=== PATIENT | female | born 1995 | race African-American/Black ===

== ENCOUNTER 2017-01-29 21:55 | Emergency (ER) | payer OTHER ==
[~2017-01-29] VITALS: Ht 167.6 cm; Wt 74.0 kg
[~2017-01-29 21:55] MED LIST: NOHOMEMEDS
[2017-01-29] MEDS ORDERED: NIFEDIPINE ER60 MG PO (22:08)
[2017-01-29] MEDS ORDERED: FLEXERIL10 MG PO (22:50)
[2017-01-29] MEDS ORDERED: NAPROXEN500 MG PO (22:50)
[2017-01-29 23:14] VITALS: BP 129/87
== END 2017-01-29 23:28 | disposition home or self-care (01) ==
LOC: EME 21:55
DX: S39.012A Strain of muscle, fascia and tendon of lower back, initial encounter (principal); I10 Essential (primary) hypertension; Y92.411 Interstate highway as the place of occurrence of the external cause; V49.09XA Driver injured in collision with other motor vehicles in nontraffic accident, initial encounter; Z88.6 Allergy status to analgesic agent
CPT/HCPCS: 99281; 99284

== ENCOUNTER 2017-06-22 20:45 | Emergency (ER) | payer SELFPAY ==
[~2017-06-22] VITALS: Ht 167.6 cm; Wt 76.2 kg
[~2017-06-22 20:45] MED LIST changes: +FLEXERIL10 MG PO; +NAPROXEN500 MG PO; +NIFEDIPINE ER60 MG PO
[2017-06-22 21:41] LABS: EOSINOPHIL (%) 1.5 % (0-5); EOSINOPHIL COUNT 0.2 K/uL (0-0.3); HEMATOCRIT 39.1 % (36.0-46.0); IMMATURE GRANULOCYTE (%) 0.4 % (0.0-0.7); IMMATURE GRANULOCYTE COUNT 0.1 K/uL; LYMPHOCYTE COUNT 1.9 K/uL (1.0-2.8); MCH 26.6 PG (29.0-34.0); MCHC 32.2 G/DL (30.0-36.0); MCV 82.5 FL (83-99); MEAN PLAT.VOLUME 10.8 uM^3 (9.5-12.4); MONOCYTE (%) 6.8 % (3-12); MONOCYTE COUNT 0.8 K/uL (0-0.8); PLATELET COUNT 226 K/uL (156-360); RBC DIS.WIDTH-CV 14.1 % (11.8-14.6); RBC DIS.WIDTH-SD 42.6 % (39-53); RED BLOOD COUNT 4.74 M/uL (3.80-5.20); WHITE BLOOD COUNT 11.9 K/uL (4.1-10.2)
[2017-06-22 22:05] LABS: CHLORIDE 103 mEq/L (99-109); POTASSIUM 3.7 mEq/L (3.7-5.4); SODIUM 138 mEq/L (136-147)
[2017-06-22 22:07] LABS: GLUCOSE 83 mg/dL (70-99)
[2017-06-22 22:08] LABS: ANION GAP 11 MEQ/L (2-14)
[2017-06-22 22:09] LABS: TOTAL BILIRUBIN 0.3 mg/dL (0.0-1.0)
[2017-06-22 22:11] LABS: ALKALINE PHOSPHATASE 71 IU/L (3-129); GFR ESTIMATE (CALCULATED) > 59 mL/min/
[2017-06-22 22:12] LABS: UREA NITROGEN (BUN) 11 mg/dL (9-23)
[2017-06-22 22:19] LABS: QUANTITATIVE HCG < 4.0 MIU/ML
[2017-06-22 22:24] LABS: ADD MIUA? YES; BILIRUBIN NEGATIVE; BLOOD NEGATIVE; COLOR YELLOW ((YELLOW)); GLUCOSE (STRIP) NEGATIVE; KETONES NEGATIVE; LEUKOCYTES SMALL; NITRITE NEGATIVE; PROTEIN (STRIP) 30; SPECIFIC GRAVITY 1.028 (1.000-1.030); UROBILINOGEN 0.2 MG/DL (0.2-1.0)
[2017-06-22 22:29] LABS: BACTERIA NONE SEEN /HPF; EPITHELIAL CELLS 2+ /HPF; MUCUS 2+ /LPF; RED BLOOD CELLS 0-5 /HPF (0-5); UCUL ADDED? NO; WHITE BLOOD CELLS 0-5 /HPF (0-5)
[2017-06-22 23:15] LABS: CREATINE KINASE 114 IU/L (1-294)
[2017-06-22 23:20] LABS: INTERNAL CONTROL VALID? YES; MONOSPOT (MONONUCLEOSIS SEROL) NEGATIVE
[2017-06-22] MEDS ORDERED: NAPROSYN500 MG PO (23:50)
[2017-06-22] MEDS ORDERED: TRAMADOL HCL50 MG PO (23:50)
[2017-06-23 00:31] VITALS: BP 107/65
== END 2017-06-23 00:32 | disposition home or self-care (01) ==
LOC: EME 20:45
PROVIDERS: Emergency Medicine
DX: R55 Syncope and collapse (principal); M79.1 Myalgia; F17.200 Nicotine dependence, unspecified, uncomplicated
CPT/HCPCS: 71020; 80053; 81003; 82550; 84702; 85025; 86308; 87086; 87651 90; 93005; 99281; 99285; J1885; J3010; J7030

== ENCOUNTER 2017-11-11 20:51 | Emergency (ER) | payer OTHER ==
[~2017-11-11] VITALS: Ht 167.6 cm; Wt 75.1 kg
[~2017-11-11 20:51] MED LIST changes: +NAPROSYN500 MG PO; +TRAMADOL HCL50 MG PO
[2017-11-11 21:26] LABS: HEMATOCRIT 37.9 % (36.0-46.0); HEMOGLOBIN 12.5 G/DL (11.9-15.5); MCH 27.4 PG (29.0-34.0); MCV 83.1 FL (83-99); PLATELET COUNT 227 K/uL (156-360); RBC DIS.WIDTH-CV 13.4 % (11.8-14.6); RBC DIS.WIDTH-SD 40.7 % (39-53); RED BLOOD COUNT 4.56 M/uL (3.80-5.20); WHITE BLOOD COUNT 7.6 K/uL (4.1-10.2)
[2017-11-11 21:47] LABS: CHLORIDE 109 mEq/L (99-109); POTASSIUM 4.2 mEq/L (3.7-5.4); SODIUM 140 mEq/L (136-147)
[2017-11-11 21:48] LABS: GLUCOSE 107 mg/dL (70-99)
[2017-11-11 21:52] LABS: CREATININE 0.8 mg/dL (0.6-1.3); GFR ESTIMATE (CALCULATED) > 59 mL/min/
[2017-11-11 21:53] LABS: UREA NITROGEN (BUN) 18 mg/dL (9-23)
[2017-11-11 21:56] LABS: TROP-I INTERPRETATION NEGATIVE; TROPONIN-I < 0.01 ng/mL (0.0-0.30)
[2017-11-11 22:34] LABS: QUANTITATIVE HCG < 4.0 MIU/ML
[2017-11-11 23:34] LABS: APPEARANCE SL.HAZY ((CLEAR)); BILIRUBIN NEGATIVE; BLOOD NEGATIVE; COLOR YELLOW ((YELLOW)); GLUCOSE (STRIP) NEGATIVE; KETONES 20; LEUKOCYTES LARGE; NITRITE NEGATIVE; PROTEIN (STRIP) NEGATIVE; SPECIFIC GRAVITY 1.028 (1.000-1.030); UROBILINOGEN 0.2 MG/DL (0.2-1.0)
[2017-11-11 23:51] LABS: BACTERIA 2+ /HPF; EPITHELIAL CELLS 3+ /HPF; MUCUS 1+ /LPF; RED BLOOD CELLS 0-5 /HPF (0-5); UCUL ADDED? YES
[2017-11-12] MEDS ORDERED: ULTRAM50 MG PO (02:20)
[2017-11-12] MEDS ORDERED: KEFLEX500 MG PO (02:20)
[2017-11-12] MEDS ORDERED: ZOFRAN ODT4 MG PO (02:22)
[2017-11-12 02:36] VITALS: BP 121/70
== END 2017-11-12 02:47 | disposition home or self-care (01) ==
LOC: EME 20:51
PROVIDERS: Emergency Medicine
DX: N39.0 Urinary tract infection, site not specified (principal); R42 Dizziness and giddiness; R11.2 Nausea with vomiting, unspecified; I10 Essential (primary) hypertension; F17.210 Nicotine dependence, cigarettes, uncomplicated
CPT/HCPCS: 71046; 76856; 80048; 81003; 84484; 84702; 85027; 87086; 93005; 99281; 99284; J1885; J7030

== ENCOUNTER → 2018-04-28 | Outpatient (CLI) | payer OTHER ==
[~2018-04-28] MED LIST changes: +KEFLEX500 MG PO; +PERCOCET 5/31 TABLET PO; +ULTRAM50 MG PO; +ZOFRAN ODT4 MG PO
== END | disposition home or self-care (01) ==
LOC: RAD 10:06
DX: K80.20 Calculus of gallbladder without cholecystitis without obstruction (principal)
CPT/HCPCS: 76705

== ENCOUNTER 2018-05-03 10:17 | Emergency (ER) | payer OTHER ==
[~2018-05-03] VITALS: Ht 167.6 cm; Wt 72.0 kg
[~2018-05-03 10:17] MED LIST changes: -PERCOCET 5/31 TABLET PO
[2018-05-03 10:37] LABS: HEMATOCRIT 36.2 % (36.0-46.0); HEMOGLOBIN 11.9 G/DL (11.9-15.5); MCH 27.9 PG (29.0-34.0); MCHC 32.9 G/DL (30.0-36.0); MCV 84.8 FL (83-99); PLATELET COUNT 263 K/uL (156-360); RBC DIS.WIDTH-CV 14.2 % (11.8-14.6); RBC DIS.WIDTH-SD 44.2 % (39-53); RED BLOOD COUNT 4.27 M/uL (3.80-5.20); WHITE BLOOD COUNT 7.1 K/uL (4.1-10.2)
[2018-05-03 11:06] LABS: ALBUMIN 4.3 G/DL (3.2-4.8); ALKALINE PHOSPHATASE 53 IU/L (3-129); ALT (GPT) 11 IU/L (3-49); AST (GOT) 14 IU/L (2-34); CHLORIDE 109 MEQ/L (99-109); CREATININE 0.8 MG/DL (0.6-1.3); GFR ESTIMATE (CALCULATED) > 59 mL/min/; GLUCOSE 92 mg/dL (70-99); POTASSIUM 3.9 MEQ/L (3.7-5.4); SODIUM 142 MEQ/L (136-147); TOTAL BILIRUBIN 0.4 MG/DL (0.0-1.0); TOTAL PROTEIN 6.9 G/DL (6.4-8.3); UREA NITROGEN (BUN) 12 mg/dL (9-23)
[2018-05-03 11:49] LABS: QUANTITATIVE HCG < 4.0 MIU/ML
[2018-05-03 11:53] LABS: APPEARANCE CLEAR ((CLEAR)); BILIRUBIN NEGATIVE; BLOOD NEGATIVE; COLOR YELLOW ((YELLOW)); GLUCOSE (STRIP) NEGATIVE; KETONES NEGATIVE; LEUKOCYTES TRACE; NITRITE NEGATIVE; PROTEIN (STRIP) 30; SPECIFIC GRAVITY 1.031 (1.000-1.030)
[2018-05-03 12:11] LABS: EPITHELIAL CELLS 1+ /HPF; MUCUS NONE SEEN /LPF; RED BLOOD CELLS NONE SEEN /HPF (0-5); WHITE BLOOD CELLS 0-5 /HPF (0-5)
[2018-05-03 12:12] LABS: BACTERIA RARE /HPF; UCUL ADDED? NO
[2018-05-03 13:03] LABS: LIPASE 6 U/L (1.0-51.0)
[2018-05-03] MEDS ORDERED: ZOFRAN ODT4 MG PO (14:02)
[2018-05-03] MEDS ORDERED: PERCOCET 5/31 TABLET PO (14:02)
[2018-05-03 14:14] VITALS: BP 115/85
== END 2018-05-03 14:16 | disposition home or self-care (01) ==
LOC: EME 10:17
DX: K80.10 Calculus of gallbladder with chronic cholecystitis without obstruction (principal); I10 Essential (primary) hypertension; F12.90 Cannabis use, unspecified, uncomplicated; F17.200 Nicotine dependence, unspecified, uncomplicated; Z88.6 Allergy status to analgesic agent; Z88.5 Allergy status to narcotic agent
CPT/HCPCS: 76705; 80053; 81003; 83690; 84702; 85027; 99281; 99284; J3010

== ENCOUNTER 2018-05-14 07:19 | Day surgery (SDC) | payer OTHER ==
[~2018-05-14] VITALS: Ht 167.6 cm; Wt 69.0 kg
[~2018-05-14 07:19] MED LIST changes: +DAILY MULTIPLE1 EAC2 PO; +PERCOCET 5/31 TABLET PO
[2018-05-14 07:58] VITALS: BP 112/68
[2018-05-14] MEDS ORDERED: OXYCODONE HCL5 MG PO (11:02)
[2018-05-14 12:40] VITALS: BP 110/68
[2018-05-14 13:38] VITALS: BP 121/71
== END 2018-05-14 13:58 | disposition home or self-care (01) ==
LOC: SDC 07:19
PROVIDERS: Surgery
DX: K80.10 Calculus of gallbladder with chronic cholecystitis without obstruction (principal); K66.0 Peritoneal adhesions (postprocedural) (postinfection); F17.200 Nicotine dependence, unspecified, uncomplicated; Z88.5 Allergy status to narcotic agent; Z87.09 Personal history of other diseases of the respiratory system; Z86.79 Personal history of other diseases of the circulatory system
CPT/HCPCS: 81025; 88304; J0131; J1885; J2250; J2405; J2765; J3010; J7120; Q0175; S0074